=== PATIENT | female | born 1990 | race Two or more races ===

== ENCOUNTER 2018-10-25 00:03 | Emergency (ER) | payer SELFPAY ==
[~2018-10-25] VITALS: Ht 160 cm; Wt 88.5 kg
[2018-10-25 00:11] VITALS: BP 141/68
== END 2018-10-25 00:56 | disposition left against medical advice (07) ==
LOC: ER 00:03
DX: R10.31 Right lower quadrant pain (principal); R11.2 Nausea with vomiting, unspecified; Z53.21 Procedure and treatment not carried out due to patient leaving prior to being seen by health care provider

== ENCOUNTER 2019-04-18 03:39 | Emergency (ER) | payer SELFPAY ==
[~2019-04-18] VITALS: Ht 160 cm; Wt 78.9 kg
[2019-04-18 04:11] LABS: Basophils # (auto) 0 uL; Basophils % (auto) 0.5 % (0.0-2.0); Eosinophils # (auto) 0.1 uL; Eosinophils % (auto) 0.8 % (0.0-7.0); Hematocrit 38.7 % (36.0-46.0); Hemoglobin 13.1 g/dL (12.2-16.2); Lymphocytes # (auto) 1.6 uL; Lymphocytes % (auto) 15.9 % (10.0-50.0); Mean Corpuscular Hemoglobin 30.1 pg (28.0-32.0); Mean Corpuscular Hgb Conc. 33.7 g/dL (32.0-36.0); Mean Corpuscular Volume 89.3 fL (80.0-100.0); Monocytes # (auto) 0.6 uL; Monocytes % (auto) 5.7 % (0.0-12.0); Neutrophils # (auto) 7.6 uL; Neutrophils % (auto) 77.1 % (37.0-80.0); Platelet Count (auto) 251 10^3/uL (140-450); Red Blood Cells 4.34 10^6/uL (4.0-5.20); Red Cell Distribution Width 12.8 % (11.8-14.3); White Blood Cell 9.9 10^3/uL (4.4-10.8)
[2019-04-18 04:27] LABS: Albumin 4.1 g/dL (3.4-5.0); BUN/Creatinine Ratio 12.8; Potassium 3.9 mmol/L (3.5-5.1)
[2019-04-18 04:30] LABS: Bilirubin, Total 0.5 mg/dL (0.2-1.0); Total Protein 7.6 g/dL (6.4-8.2)
[2019-04-18 08:39] LABS: Urine Bacteria NONE SEEN /hpf (None Seen); Urine Blood Negative /uL (Negative); Urine Mucus FEW (None Seen); Urine Specific Gravity 1.012 (1.001-1.035); Urine WBC 2 /hpf (0 - 5)
[2019-04-18] MEDS ORDERED: SODIUM CHLORIDE 0.9% 1,000 ML IV ONE (10:45)
[2019-04-18] MEDS ORDERED: KETOROLAC TROMETH 30 MG/ML 1ML VIAL IV ONE (10:45)
[2019-04-18] MEDS ORDERED: METOCLOPRAMIDE HCL 5MG/ml INJ 2ml VIAL IV ONE (10:45)
[2019-04-18 13:22] VITALS: BP 108/67
== END 2019-04-18 13:24 | disposition home or self-care (01) ==
LOC: ER 03:39
DX: K80.20 Calculus of gallbladder without cholecystitis without obstruction (principal); K80.50 Calculus of bile duct without cholangitis or cholecystitis without obstruction
CPT/HCPCS: 36415; 76705; 80053; 81001; 81025; 82150; 83690; 85025

== ENCOUNTER 2024-11-02 21:26 | Inpatient (IN) | payer MEDICAID ==
[~2024-11-02] VITALS: Ht 160 cm; Wt 95.6 kg
[2024-11-02 22:28] LABS: Urine Bacteria None Seen /hpf (None Seen)
--- NOTE | 2024-11-02 22:41 | ED.PDOC ---
General HPI Comments 34 year old female presents to the ED with a chief complaint of RT flank pain onset 3 weeks. Patient states she has been experiencing RT flank pain, radiates to the back for the past 3 weeks. Patient had similar symptoms June 2024, states she had sepsis due to untreated UTI became Pyelonephritis. Denies fever, chills, nausea, vomiting, diarrhea, chest pain, shortness of breath, dizziness, dysuria, hematuria. No other symptoms or modifying factors present at this time. Chief Complaint: Abdominal Pain Time Seen by MD: 22:28 Primary Care Provider: none Reviewed notes: Medications, Allergies Allergies: Coded Allergies: NO KNOWN ALLERGIES (Unverified , 04/18/19) Information Source: Patient Mode of Arrival: Ambulatory Severity: Moderate Timing: Weeks Duration: Since onset Prehospital treatment: None Onset: Spontaneous Symptoms: Other (RT flank ) History of: UTI Location: (R) Flank Modifying factors: None associated signs and symptoms: Flank Pain, Back Pain Past Medical History PAST MEDICAL HISTORY: UTI'S Surgical History: Denies all surgeries CRADLE PLACER History: No Pertinent CRADLE PLACER History Family History Family History: Unobtainable Social History Smoker: Non-Smoker Alcohol: Denies ETOH Use Drugs: Denies Drug Use Lives In: Home Constitutional: denies: chills, diaphoresis, fatigue, fever, malaise, sweats, weakness, others EENTM: denies: blurred vision, double vision, ear bleeding, ear discharge, ear drainage, ear pain, ear ringing, eye pain, eye redness, hearing loss, mouth pain, mouth swelling, nasal discharge, nose bleeding, nose congestion, nose pain, photophobia, tearing, throat pain, throat swelling, voice changes, others Respiratory: denies: cough, hemoptysis, orthopnea, SOB at rest, shortness of breath, SOB with excertion, stridor, wheezing, others Cardiovascular: denies: chest pain, dizzy spells, diaphoresis, Dyspnea on exertion, edema, irregular heart beat, left arm pain, lightheadedness, palpitations, PND, syncope, others Gastrointestinal: denies: abdomen distended, abdominal pain, blood streaked bowels, constipated, diarrhea, dysphagia, difficulty swallowing, hematemesis, melena, nausea, poor appetite, poor fluid intake, rectal bleeding, rectal pain, vomiting, others Genitourinary: reports: flank pain (RT); denies: abnormal vagina bleeding, burning, dyspareunia, dysuria, frequency, hematuria, incontinence, pain, , vagina discharge, urgency, others Neurological: denies: dizziness, fainting, headache, left sided numbness, left sided weakness, numbness, paresthesia, pre-existing deficit, right sided numbness, right sided weakness, seizure, speech problems, tingling, tremors, weakness, others Musculoskeletal: reports: back pain; denies: gout, joint pain, joint swelling, muscle pain, muscle stiffness, neck pain, others Integumetry: denies: bruises, change in color, change in hair/nails, dryness, laceration, lesions, lumps, rash, wounds, others Allergic/Immunocompromised: denies: Difficulty Healing, Frequent Infections, Hives, Itching, others Hematologic/Lymphatic: denies: anemia, blood clots, easy bleeding, easy bruising, swollen glands, others Endocrine: denies: excessive hunger, excessive sweating, excessive thirst, excessive urination, flushing, intolerance to cold, intolerance to heat, unexplained weight gain, unexplained weight loss, others Psychiatric: denies: anxiety, bipolar disorder, depression, hopeless, panic disorder, schizophrenia, sleepless, suicidal, others All Other Systems: Reviewed and Negative Physical Exam General Appearance: No Apparent Distress, Normal HEENT: Normal ENT Inspection, Pharynx Normal, TMs Normal Neck: Full Range of Motion, Non-Tender, Normal, Normal Inspection Respiratory: Chest Non-Tender, Lungs Clear, No Accessory Muscle Use, No Respiratory Distress, Normal Breath Sounds Cardiovascular: No Edema, No JVD, No Murmur, No Gallop, Normal Peripheral Pulses, Regular Rate/Rhythm Breast Exam: Deferred Gastrointestinal: No Organomegaly, Non Tender, No Pulsatile Mass, Normal Bowel Sounds, Soft Genitalia: Deferred Pelvic: Deferred Rectal: Deferred Extremities: No calf tenderness, Normal capillary refill, Normal inspection, Normal range of motion, Non-tender, No pedal edema Musculoskeletal : Apperance: Normal Neurologic: Alert, plant sprayer II-XII nml as Tested, No Motor Deficits, Normal Affect, Normal Mood, No Sensory Deficits Cerebellar Function: Normal Reflexes: Normal Skin: Dry, Normal Color, Warm Lymphatic: No Adenopathy Was a procedure done? Was a procedure done?: No Differential Diagnosis Kidney stone (Female): Pancreatitis, Pyelonephritis, Urinary obstruction, Uroli thiasis Kidney stone (Male): N/A Penile/Scrotal: N/A Urinary Problem (Male): N/A Urinary Problem (Female): Intrauterine , Pyelonephritis, Urolithiasis, UTI X-Ray, Labs, Meds, VS Vital Signs Date Time Temp Pulse Resp B/P (MAP) Pulse Ox O2 Delivery O2 Flow Rate FiO2 11/02/24 21:47 98.1 84 17 139/84 (102) 100 Lab Test 11/02/24 22:17 11/02/24 21:45 Range/Units White Blood Count 8.7 4.4-10.8 10^3/uL Red Blood Count 4.53 4.0-5.20 10^6/uL Hemoglobin 12.1 L 12.2-16.2 g/dL Hematocrit 37.5 36.0-46.0 % Mean Corpuscular Volume 82.7 80.0-100.0 fL Mean Corpuscular Hemoglobin 26.7 L 28.0-32.0 pg Mean Corpuscular Hemoglobin Concent 32.2 32.0-36.0 g/dL Red Cell Distribution Width 13.6 11.8-14.3 % Platelet Count 378 140-450 10^3/uL Mean Platelet Volume 8.2 6.9-10.8 fL Neutrophils (%) (Auto) 58.8 37.0-80.0 % Lymphocytes (%) (Auto) 35.0 10.0-50.0 % Monocytes (%) (Auto) 4.7 0.0-12.0 % Eosinophils (%) (Auto) 0.9 0.0-7.0 % Basophils (%) (Auto) 0.6 0.0-2.0 % Neutrophils # (Auto) 5.1 1.6-8.6 10 ^3/uL Lymphocytes # (Auto) 3.0 0.4-5.4 10 ^3/uL Monocytes # (Auto) 0.4 0-1.3 10 ^3/uL Eosinophils # (Auto) 0.1 0-0.8 10 ^3/uL Basophils # (Auto) 0.1 0-0.2 10 ^3/uL Nucleated Red Blood Cells 0.0 % Sodium Level 141 136-145 mmol/L Potassium Level 4.0 3.5-5.1 mmol/L Chloride Level 106 98-107 mmol/L Carbon Dioxide Level 27 20-31 mmol/L Anion Gap 8 5-15 Blood Urea Nitrogen 8 L 9-23 mg/dL Creatinine 0.83 0.550-1.02 mg/dL Glomerular Filtration Rate Calc 96 >90 mL/min BUN/Creatinine Ratio 9.6 L 10.0-20.0 Serum Glucose 133 H 74-106 mg/dL Calcium Level 10.0 8.7-10.4 mg/dL Urine Color Yellow Yellow Urine Clarity Turbid H Clear Urine pH 6.0 5.0-9.0 Urine Specific [place] 1.028 1.001-1.035 Urine Protein Negative Negative Urine Ketones Negative Negative Urine Blood Trace H Negative /uL Urine Nitrite Negative Negative Urine Bilirubin Negative Negative Urine Urobilinogen 2 H Negative mg/dL Urine Leukocyte Esterase Negative Negative /uL Urine RBC 2 0 - 4 /hpf Urine Microscopic WBC 8 H 0-5 /HPF Urine Squamous Epithelial Cells Few <5 /hpf Urine Bacteria None seen None Seen /hpf Urine Mucus Few None Seen Urine Glucose Normal Normal mg/dL Urine Test Negative Negative Time of 1ST Reevaluation: 22:58 Reevaluation 1ST: Unchanged Patient Education/Counseling: Diagnosis, Treatment, Prognosis Family Education/Counseling: No Family Present Additional Information The following tests were ordered, and results were reviewed by me: CBC, BMP, UA, PREGUA I discussed treatment and results with medical personnel and: patient Departure 1 Departure Time of Disposition: 01:12 (Patient presented with abdominal pain that was concerning for possible appendicits, gastritis, cholecystitis, colitis, gastroenteritis, sbo, or orther possible surgical emergency. Data: 1. I ordered and reviewed the result of at least 3 labs including a CBC, BMP, and Urinalysis. 2. I independently interpreted the following tests: CT Abdoment and Pelvis is concerning for cholelithiasis .Risk:This patient has a high risk of morbidity due to further diagnostic testing or treatment and may suffer from an acute abdominal process disorder. Workup reveals cholelithiasis, renal colic and intractable abdominal pain and patient should be admitted for further workup. and possible expert consultation. ) Impression: Primary Impression: Cholelithiasis Qualified Codes: K80.20 - Calculus of gallbladder without cholecystitis without obstruction Additional Impressions: Renal colic Generalized abdominal pain Disposition: ADMITTED INPATIENT Admit to: Med Surg Condition: Serious Critical Care Note Critical Care Time?: Yes Critical care comment: Intractable abdominal pain Authorized and Performed by: Amelia Thacker MD Total critical care time: Approximately 38 minutes Due to a high probability of clinically significant, life threatening deterioration, the patient required my highest level of preparedness to intervene emergently and I personally spent this critical care time directly and personally managing the patient. This critical care time included obtaining a history; examining the patient; pulse oximetry; ordering and review of studies; arranging urgent treatment with development of a management plan; evaluation of patient's response to treatment; frequent reassessment; and, discussions with other providers. This critical care time was performed to assess and manage the high probability of imminent, life-threatening deterioration that could result in multi-organ failure. It was exclusive of separately billable procedures and treating other patients and teaching time. Please see my other sections and the rest of the note for further information on patient assessment and treatment. Stability Stability form required: No I personally scribed for AMELIA THACKER MD ([email or web address]) on 11/02/24 at 22:41. Electronically submitted by Carrie Rocha ([email or web address]). I personally scribed for AMELIA THACKER MD ([email or web address]) on 11/02/24 at 22:47. Electronically submitted by Carrie Rocha ([email or web address]). AMELIA THACKER MD Nov 02, 2024 22:41
[2024-11-02 22:48] LABS: Basophils # (auto) 0.1 10 ^3/uL (0-0.2); Basophils % (auto) 0.6 % (0.0-2.0); Eosinophils # (auto) 0.1 10 ^3/uL (0-0.8); Eosinophils % (auto) 0.9 % (0.0-7.0); Hematocrit 37.5 % (36.0-46.0); Hemoglobin 12.1 g/dL (12.2-16.2); Mean Corpuscular Hemoglobin 26.7 pg (28.0-32.0); Mean Corpuscular Hgb Conc. 32.2 g/dL (32.0-36.0); Mean Corpuscular Volume 82.7 fL (80.0-100.0); Monocytes # (auto) 0.4 10 ^3/uL (0-1.3); Monocytes % (auto) 4.7 % (0.0-12.0); Neutrophils # (auto) 5.1 10 ^3/uL (1.6-8.6); Neutrophils % (auto) 58.8 % (37.0-80.0); Platelet Count (auto) 378 10^3/uL (140-450); Red Blood Cells 4.53 10^6/uL (4.0-5.20); Red Cell Distribution Width 13.6 % (11.8-14.3); White Blood Cell 8.7 10^3/uL (4.4-10.8)
[2024-11-02 22:55] LABS: Urine Blood TRACE /uL (Negative); Urine Clarity Turbid (Clear); Urine Color Yellow (Yellow); Urine Mucus FEW (None Seen); Urine Protein, UAD Negative (Negative); Urine Specific Gravity 1.028 (1.001-1.035); Urine Squamous Epithelial Cell FEW /hpf (<5); Urine Urobilinogen 2 mg/dL (Negative); Urine WBC 8 /HPF (0-5)
[2024-11-02 23:02] LABS: Chloride 106 mmol/L (98-107); Sodium 141 mmol/L (136-145)
[2024-11-02 23:03] LABS: Anion Gap 8 (5-15); Carbon Dioxide 27 mmol/L (20-31)
[2024-11-02 23:09] LABS: BUN/Creatinine Ratio 9.6 (10.0-20.0)
[2024-11-02 23:11] LABS: Blood Urea Nitrogen 8 mg/dL (9-23); Glucose 133 mg/dL (74-106)
--- NOTE | 2024-11-02 23:56 | DVH ---
Exam: CT CT AB PEL WO CON-NO ORAL OR IV History: right flank pain Comparison Study: None Contrast: None TECHNIQUE: Multidetector CT of abdomen and pelvis without IV contrast. Radiation Dose Information: CT Dose: CTDI volume is 16.91 mGy. Dose-length product is 898.81 mGy*cm FINDINGS: lung bases are clear. Heart size is normal. Lower esophagus is unremarkable. There are multiple stones seen in the gallbla dder there is diffuse fatty infiltration of the liver. Pancreas and spleen and adrenals are unremarkable. Appendix and gastrointestinal tract are normal. Ut erus is anteverted ovaries are normal there are no fluid collections in the abdomen and pelvis. Thora columbar spine is normal. The liver is borderline in size at 18.8 cm consider 18.7 cm the cutoff for normal size liver. There are 2 stones in the collecting system of the left kidney both of them are approximately 5 mm in size 1 is in the upper pole of the other is in the lower pole collecting system. No evidence for gas trointestinal urinary obstruction. IMPRESSION: 1. Cholelithiasis with enlarged fatty infiltrated liver.There are 2 approximately 5 mm stones in the collecting system of the left kidney without obstruction
[2024-11-03] MEDS ORDERED: KETOROLAC TROMETH 30 MG/ML 1ML VIAL IV PRN (02:00)
[2024-11-03] MEDS: SODIUM CHLORIDE 0.9% 1,000 ML IV ONE ×2 (02:00→03:35)
[2024-11-03 02:16] LABS: Alanine Aminotransferase 33 U/L (7-40); Albumin 4.6 g/dL (3.2-4.8); Alkaline Phosphatase 86 U/L (46-116); Aspartate Aminotransferase 20 U/L (13-40); Bilirubin, Total 0.4 mg/dL (0.2-1.0); CRP High Sensitivity 0.89 mg/dL (<1.0); Total Protein 7.6 g/dL (5.7-8.2)
[2024-11-03 02:17] LABS: Bilirubin, Direct < 0.1 mg/dL (<0.3)
[2024-11-03 02:38] LABS: Lipase 54 U/L (12-53)
[2024-11-03 02:53] LABS: Erythrocyte Sedimentation Rate 16 mm/hr (0-20)
[2024-11-03] MEDS: ONDANSETRON HCL 4 MG/2 ML VIAL IV ONE ×2 (03:21)
[2024-11-03] MEDS: MORPHINE SULFATE 4 MG/ML SYR/VIAL IV ONE (03:21)
[2024-11-03] MEDS: KETOROLAC TROMETH 30 MG/ML 1ML VIAL IV ONE (03:21)
[2024-11-03] MEDS: ACETAMINOPHEN 325 MG TAB PO SCH (03:23)
[2024-11-03] MEDS: FAMOTIDINE (10MG/ML) 2ML VL IV ONE (03:35)
[2024-11-03 03:39] VITALS: PULSE 78; RESP 17; O2SAT 100
--- NOTE | 2024-11-03 05:15 | DVHHPRES ---
History of Present Illness Resident Creating Document: ORION JEAN RESIDENT Reason for Visit: abdominal pain History of Present Illness A 34-year-old female with a history of recurrent urinary tract infections presents to the emergency department with one week history of right flank pain radiating to the back. The pain is worse when she eats, the pain is colic and comes and goes. She denies fever, chills, nausea, vomiting, diarrhea, chest pain, shortness of breath, dizziness, dysuria, or hematuria. No other modifying factors or associated symptoms are noted. No home meds PMHx UTI'S Surgical History: Denies all surgeries ELECTROTYPER History: No Pertinent ELECTROTYPER History Social History Smoker: Non-Smoker Alcohol: Denies ETOH Use Drugs: Denies Drug Use Lives In: Home Review of Systems Constitutional: No: Fever, Chills, Sweats, Weakness, Malaise, Other Eyes: No: Pain, Vision change, Conjunctivae inflammation, Eyelid inflammation, Other, Redness ENT: No: Ear pain, Ear discharge, Nose pain, Nose discharge, Nose congestion, Mouth pain, Mouth swelling, Throat pain, Throat swelling, Other Respiratory: No: Cough, Dry, Shortness of breath, SOB with excertion, Wheezing, Hemoptysis, Pleuritic Pain, Sputum, Wheezing, Other Cardiovascular: No: Chest Pain, Palpitations, Orthopnea, Paroxysmal Noc. Dyspnea, Edema, Lt Headedness, Other Gastrointestinal: Abdominal Pain; No: Nausea, Vomiting, Diarrhea, Constipation, Melena, Hematochezia, Other Genitourinary: No Dysuria, No Frequency, No Incontinence, No Hematuria, No Retention, No Other Musculoskeletal: No: other, neck pain, shoulder pain, arm pain, back pain, hand pain, leg pain, foot pain Skin: No: Rash, Lesions, Jaundice, Bruising, Other Neurological: No: Weakness, Numbness, Incoordination, Change in speech, Confusion, Seizures, Other Allergies: Coded Allergies: NO KNOWN ALLERGIES (Unverified , 04/18/19) Medications Current Medications Medications Dose Ordered Sig/Lula Route Start Time Stop Time Status Last Admin Dose Admin Acetaminophen 650 mg TID PO 11/03/24 02:00 Ketorolac Tromethamine 15 mg TIDPRN PRN IV 11/03/24 02:00 11/08/24 01:59 Exam Vital Signs Vital Signs Date Time Temp Pulse Resp B/P (MAP) Pulse Ox O2 Delivery O2 Flow Rate FiO2 11/03/24 03:39 78 17 100 Room Air* 0 21 11/03/24 03:39 97.9 130/95 (107) 97.9 General Appearance: Alert, Oriented X3, Cooperative HEENT: Atraumatic Respiratory: Clear to auscultation Cardiovascular: Regular rate, Normal S1 Abdominal: Other (tenderness at palpation RUQ, martin neg ) Extremities: No clubbing Skin: No rashes, No breakdown Neuro: Normal gait, Normal speech Psych/Mental Status: Mental status NL, Mood NL Labs/Xrays Labs Test 11/03/24 02:00 11/02/24 22:17 11/02/24 21:45 Range/Units Erythrocyte Sedimentation Rate 16 0-20 mm/hr White Blood Count 8.7 4.4-10.8 10^3/uL Red Blood Count 4.53 4.0-5.20 10^6/uL Hemoglobin 12.1 L 12.2-16.2 g/dL Hematocrit 37.5 36.0-46.0 % Mean Corpuscular Volume 82.7 80.0-100.0 fL Mean Corpuscular Hemoglobin 26.7 L 28.0-32.0 pg Mean Corpuscular Hemoglobin Concent 32.2 32.0-36.0 g/dL Red Cell Distribution Width 13.6 11.8-14.3 % Platelet Count 378 140-450 10^3/uL Mean Platelet Volume 8.2 6.9-10.8 fL Neutrophils (%) (Auto) 58.8 37.0-80.0 % Lymphocytes (%) (Auto) 35.0 10.0-50.0 % Monocytes (%) (Auto) 4.7 0.0-12.0 % Eosinophils (%) (Auto) 0.9 0.0-7.0 % Basophils (%) (Auto) 0.6 0.0-2.0 % Neutrophils # (Auto) 5.1 1.6-8.6 10 ^3/uL Lymphocytes # (Auto) 3.0 0.4-5.4 10 ^3/uL Monocytes # (Auto) 0.4 0-1.3 10 ^3/uL Eosinophils # (Auto) 0.1 0-0.8 10 ^3/uL Basophils # (Auto) 0.1 0-0.2 10 ^3/uL Nucleated Red Blood Cells 0.0 % Sodium Level 141 136-145 mmol/L Potassium Level 4.0 3.5-5.1 mmol/L Chloride Level 106 98-107 mmol/L Carbon Dioxide Level 27 20-31 mmol/L Anion Gap 8 5-15 Blood Urea Nitrogen 8 L 9-23 mg/dL Creatinine 0.83 0.550-1.02 mg/dL Glomerular Filtration Rate Calc 96 >90 mL/min BUN/Creatinine Ratio 9.6 L 10.0-20.0 Serum Glucose 133 H 74-106 mg/dL Calcium Level 10.0 8.7-10.4 mg/dL Total Bilirubin 0.4 0.2-1.0 mg/dL Direct Bilirubin < 0.1 <0.3 mg/dL Gamma Glutamyl Transpeptidase 18 <38 U/L Aspartate Amino Transferase (AST) 20 13-40 U/L Alanine Aminotransferase (ALT) 33 7-40 U/L Alkaline Phosphatase 86 46-116 U/L C-Reactive Protein High Sensitivity 0.89 <1.0 mg/dL Total Protein 7.6 5.7-8.2 g/dL Albumin 4.6 3.2-4.8 g/dL Lipase 54 H 12-53 U/L Urine Color Yellow Yellow Urine Clarity Turbid H Clear Urine pH 6.0 5.0-9.0 Urine Specific [place] 1.028 1.001-1.035 Urine Protein Negative Negative Urine Ketones Negative Negative Urine Blood Trace H Negative /uL Urine Nitrite Negative Negative Urine Bilirubin Negative Negative Urine Urobilinogen 2 H Negative mg/dL Urine Leukocyte Esterase Negative Negative /uL Urine RBC 2 0 - 4 /hpf Urine Microscopic WBC 8 H 0-5 /HPF Urine Squamous Epithelial Cells Few <5 /hpf Urine Bacteria None seen None Seen /hpf Urine Mucus Few None Seen Urine Glucose Normal Normal mg/dL Urine Test Negative Negative Assessment/Plan Assessment/Plan 34-year-old female with recurrent UTIs, presenting with right flank pain for a week. Workup reveals cholelithiasis with fatty liver and nephrolithiasis (left kidney, non-obstructing). #Intractable abdominal pain #Cholelithiasis #Hepatomegaly #Hepatic steatosis #Nephrolithiasis (non-obstructing left kidney stones, 5 mm) Admit NPO IV fluids Liver ultrasound Lipase slightly elevated Pain management Surgical consult Labs 6 am Case discussed with Dr Kaufman Plan discussed with: Patient, Other (rn) My Orders Orders - ORION JEAN RESIDENT Procedure Category Date Status Time Admit ADMIT 11/03/24 Transmitted 01:53 Gallbladder US 11/03/24 Logged 01:55 Npo (Nothing By DIET 11/03/24 Transmitted Mouth) Diet Breakfast Acetaminophen Tablet PHA 11/03/24 In Process (Tylenol Tablet) 02:00 Ketorolac Injection PHA 11/03/24 In Process (Toradol Injection) 02:00 Sodium Chloride 0.9% PHA 11/03/24 In Process 02:00 Complete Blood Count LAB 11/03/24 Logged 06:00 Comprehensive LAB 11/03/24 Logged Metabolic Panel 06:00 Lipase LAB 11/03/24 Logged 06:00 * Surgical Consult CONS 11/03/24 Transmitted Date of Service: Nov 03, 2024 Billing Provider: ROBYN KAUFMAN MD Common Visit Codes: [id number] INP/OBS CARE (HIGH) ORION JEAN RESIDENT Nov 03, 2024 05:15 ROBYN KAUFMAN MD Nov 03, 2024 18:36
[2024-11-03 07:34] LABS: Basophils # (auto) 0 10 ^3/uL (0-0.2); Basophils % (auto) 0.4 % (0.0-2.0); Eosinophils # (auto) 0.1 10 ^3/uL (0-0.8); Eosinophils % (auto) 0.8 % (0.0-7.0); Hemoglobin 12.3 g/dL (12.2-16.2); Lymphocytes # (auto) 2.3 10 ^3/uL (0.4-5.4); Lymphocytes % (auto) 29.9 % (10.0-50.0); Mean Corpuscular Hemoglobin 27.2 pg (28.0-32.0); Mean Corpuscular Hgb Conc. 32.4 g/dL (32.0-36.0); Mean Corpuscular Volume 83.9 fL (80.0-100.0); Monocytes # (auto) 0.4 10 ^3/uL (0-1.3); Monocytes % (auto) 5.4 % (0.0-12.0); Neutrophils # (auto) 4.8 10 ^3/uL (1.6-8.6); Neutrophils % (auto) 63.5 % (37.0-80.0); Nucleated Red Blood Cells % 0.1 %; Platelet Count (auto) 348 10^3/uL (140-450); Red Blood Cells 4.53 10^6/uL (4.0-5.20); Red Cell Distribution Width 13.9 % (11.8-14.3); White Blood Cell 7.6 10^3/uL (4.4-10.8)
[2024-11-03 07:55] LABS: Alanine Aminotransferase 34 U/L (7-40); Albumin 4.6 g/dL (3.2-4.8); Alkaline Phosphatase 82 U/L (46-116); Anion Gap 9 (5-15); Aspartate Aminotransferase 24 U/L (13-40); BUN/Creatinine Ratio 10.4 (10.0-20.0); Calcium 9.3 mg/dL (8.7-10.4); Carbon Dioxide 24 mmol/L (20-31); Glucose 105 mg/dL (74-106); Sodium 141 mmol/L (136-145); Total Protein 7.6 g/dL (5.7-8.2)
[2024-11-03 07:56] LABS: Bilirubin, Total 0.5 mg/dL (0.2-1.0); Blood Urea Nitrogen 7 mg/dL (9-23); Chloride 108 mmol/L (98-107); Lipase 61 U/L (12-53)
--- NOTE | 2024-11-03 07:56 | DVH ---
INDICATION:pain, rule out cholecystitis TECHNIQUE: Multiple real-time sonographic images were obtained of the right upper quadrant and left k idney. COMPARISON: None FINDINGS: The liver increased echotexture without focal mass lesions. The liver measures 21 cm. The re is no intrahepatic or extrahepatic ductal dilatation. The common duct measures 12 mm. There are gallstones. The gallbladder wall measures 2 mm and is within normal limits. The right kidney measures 11.2 cm. The right kidney is normal in contour, size, and shape. The echog enicity is normal. The left kidney measures 11.2 cm. There is suggestion of mild bilateral hydroneph rosis. The pancreas is not well visualized due to overlying bowel gas. IMPRESSION: Cholelithiasis without sonographic evidence of acute cholecystitis. Hepatic steatosis and hepatomegaly. Suggestion of mild bilateral hydronephrosis.
[2024-11-03 08:20] VITALS: BP 121/96; PULSE 85; RESP 16; TEMP 97.9; O2SAT 96
== END 2024-11-03 17:07 | disposition left against medical advice (07) ==
LOC: ER 21:26 → OVERFLOW 11-03 01:53
PROVIDERS: ADMIT Hospitalist; ATTEND Hospitalist
DX: K80.20 Calculus of gallbladder without cholecystitis without obstruction (principal); R16.0 Hepatomegaly, not elsewhere classified; K76.0 Fatty (change of) liver, not elsewhere classified; N20.0 Calculus of kidney; Z53.29 Procedure and treatment not carried out because of patient's decision for other reasons; Z87.440 Personal history of urinary (tract) infections; Z79.1 Long term (current) use of non-steroidal anti-inflammatories (NSAID); Z79.899 Other long term (current) drug therapy
CPT/HCPCS: 36415; 74176; 76705; 80048; 80053; 80076; 81001; 81025; 82150; 82977; 83690; 85025; 85652; 86141; 99291; G0378; J3490